=== PATIENT | male | born 1970 | race African-American/Black ===

== ENCOUNTER 2017-07-31 16:01 | Emergency (ER) | payer OTHER ==
[~2017-07-31] VITALS: Ht 180.3 cm; Wt 88.5 kg
[2017-07-31] MEDS ORDERED: ONDANSETRON ODT 4 MG TAB.RAPDIS PO ONE (16:30)
[2017-07-31] MEDS ORDERED: ACETAMINOPHEN 500 MG TABLET PO ONE (16:30)
[2017-07-31 16:38] LABS: INFLUENZA A PATIENT NEGATIVE (NEGATIVE); INFLUENZA B PATIENT NEGATIVE (NEGATIVE)
[2017-07-31] MEDS ORDERED: OSEL75CA PO (16:48)
--- NOTE | 2017-07-31 16:52 | PHYS DOC ---
General Chief Complaint: FLU SYMPTOM Stated Complaint: HEADACHE,BODY ACHES, FEVER Time Seen by MD: 16:07 Source: patient Exam Limitations: no limitations Problems: History of Present Illness Initial Comments Patient is a 46-year-old male who comes in the ED complaining of fever headache body aches and dry cough. 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 He states the symptoms began yesterday and on arrival temperature is 102.6F. States he is normally healthy immunizations are up-to-date including the influenza vaccine this year. He denies trouble breathing or chest pain no vomiting or diarrhea he has had recent exposure to influenza. Timing/Duration: other Modifying Factors: improves with rest Associated Symptoms: fever/chills, malaise, other Allergies: Coded Allergies: No Known Drug Allergies (Unverified , 07/31/17) Past Medical History Medical History: no pertinent history Surgical History: noncontributory Social History Smoker: non-smoker Alcohol: none Drugs: none Review of Systems Constitutional: see HPI Respiratory: see HPI, denies shortness of breath, denies wheezing Cardiovascular: denies chest pain, denies palpitations, denies syncope Gastrointestinal: denies abdominal pain, denies nausea, denies vomiting Musculoskeletal: denies back pain, denies joint pain, muscle pain, denies neck pain Psychiatric/Neurological: headache, denies numbness, denies paresthesia, denies weakness Hematologic/Lymphatic: denies blood clots, denies easy bleeding, denies easy bruising Physical Exam General Appearance: mild distress (ill appearing) Ear, Nose, Throat: hearing grossly normal, normal ENT inspection, normal pharynx Neck: non-tender, supple Respiratory: normal breath sounds, no respiratory distress Cardiovascular: normal peripheral pulses, regular rate, rhythm Gastrointestinal: non tender, soft Back: no CVA tenderness, no vertebral tenderness Extremities: normal range of motion, non-tender, normal inspection Neurologic/Psychiatric: block cutter II-XII nml as tested, no motor/sensory deficits, alert, normal mood/affect, oriented x 3 Skin: normal color, warm/dry Orders, Labs, Meds Rapid influenza testing is negative. Due to the patient's symptoms and duration and the unreliability of the rapid influenza testing this year I did offer the patient opportunity to be treated with Tamiflu. Patient is requesting Tamiflu he says he does not need a work note. I advised him to stay home from work not only to allow him to feel better but also to prevent others from becoming ill. I discussed [id number] prescription medications as well as oral hydration, I discussed signs and symptoms to monitor as well as indications for urgent return to the department. Patient's questions were answered and he expressed agreement and understanding of the treatment plan. Tylenol 1 g given in the emergency department. Departure Time of Disposition: 16:51 Disposition: 01 HOME, SELF-CARE Diagnosis: fever, flulike symptoms Condition: STABLE Patient Instructions: Influenza, Adult, [id number] Additional Instructions: Please review the patient education materials given by ED staff. Advise staying home from class or work until at least 24-48 hours after last fever. [id number] Tylenol and ibuprofen as needed. Aggressive hydration with Gatorade and water. Prescription: Tamiflu Follow-up with her doctor in 5-7 days if not improving. Return to the ED with new or changing symptoms. RUEL JIMENEZ DO Jul 31, 2017 16:52
[2017-07-31 17:00] VITALS: BP 136/83
== END 2017-07-31 17:02 | disposition home or self-care (01) ==
LOC: ER 16:01
DX: R50.9 Fever, unspecified (principal); R51 Headache; M79.1 Myalgia; R05 Cough
CPT/HCPCS: 87804; 99284; Q0162